=== PATIENT | female | born 1985 | race Two or more races ===

== ENCOUNTER 2024-11-21 23:17 | Emergency (ER) | payer MEDICAID, SELFPAY ==
[2024-11-21 23:18] VITALS: BMI 26.6
[2024-11-21 23:26] VITALS: BP 117/78; PULSE 78; RESP 20; TEMP 36.8; O2SAT 100
[2024-11-21 23:49] LABS: Collection Type, Urine Clean Catch
[2024-11-22 00:02] LABS: Amphetamine/Methamp Scrn,U Negative (Negative); Barbiturate Screen,Urine Negative (Negative); Benzodiazepines Screen,Urine Negative (Negative); Benzoylecgonine Screen, Ur Negative (Negative); Bilirubin,Urine Negative (Negative); Blood,Urine Negative (Negative); Clarity,Urine Clear (Clear/Hazy); Color,Urine Lt-Yellow (Lt Yel-Yel); Culture Indicated,Urine Not Indicated; Fentanyl Screen,Urine Negative (Negative); Glucose, Urine Negative (Negative); Ketones,Urine Trace (Negative); Leukocyte Esterase,Urine Positive (Negative); Nitrite,Urine Negative (Negative); Opiate Screen,Urine Negative (Negative); Protein,Urine Negative (Neg - Trace); RBC,Urine 1 /hpf (0-3); Specific Gravity,Urine 1.016 (1.001-1.035); Squamous Epithelial Cell,Urine 9 /hpf (0-5); THC Screen,Urine Negative (Negative); Urobilinogen,Urine Negative mg/dL (0.0-1.0); WBC,Urine 5 /hpf (0-5)
[2024-11-22 00:03] LABS: HCG Qualitative,Urine Negative
--- NOTE | 2024-11-22 00:05 | XR_ITS ---
Examination: Pelvic ultrasound, transabdominal, complete Technique: Transabdominal ultrasound of the pelvis performed using grayscale imaging Date and time of exam: November 22, 2024 0100 hours INDICATIONS: Pelvic pain beginning 2 days ago FINDINGS: Uterus 8.6 cm endometrial stripe 0.4 cm No uterine mass or intrauterine gestation Right ovary 2.7 cm arterial flow Left ovary 2.9 cm arterial flow 13 mm x 16 mm follicular cyst IMPRESSION: No uterine mass or intrauterine gestation
[2024-11-22 00:33] LABS: Basophils # (Auto) 0.1 Thou/mm3 (0.0-0.2); Basophils % (Auto) 1 % (0-2.5); Eosinophils # (Auto) 0.2 Thou/mm3 (0.0-0.5); Eosinophils % (Auto) 3 % (0-10); Hematocrit 34.7 % (36.0-46.0); Immature Granulocytes % (Auto) 0 % (0-0); Immature Granulocytes Auto 0.01 Thou/mm3 (0.00-0.00); Lymphocytes # (Auto) 3.2 Thou/mm3 (1.0-4.8); Lymphocytes % (Auto) 41 % (10-50); Mean Corpuscular HGB Conc 34.6 g/dl (31.0-37.0); Mean Corpuscular Hemoglobin 29.6 pg (25.0-35.0); Mean Corpuscular Volume 86 fL (80-100); Monocytes # (Auto) 0.5 Thou/mm3 (0.0-0.8); Monocytes % (Auto) 6 % (0-12); Neutrophils # (Auto) 3.9 Thou/mm3 (1.8-7.7); Neutrophils % (Auto) 50 % (37-80); Nucleated Red Blood Cell % 0 /100 WBC (0); Platelet Count 416 Thou/mm3 (140-440); RDW Standard Deviation 42.2 fL (36.4-46.3); Red Blood Count 4.06 Miln/mm3 (4.00-5.20); White Blood Count 7.9 Thou/mm3 (3.6-11.0)
--- NOTE | 2024-11-22 00:49 | PD.EDFMALE ---
ED Female Urogenital RME/HPI General Chief complaint: Back Pain/Injury Stated complaint: LOWER ABD,BACK PAIN Time Seen by Provider: 11/21/24 23:29 Arrival date/time: 11/21/24 23:17 39F with no significant PMH presents to ED with several days of pelvic pressure, and some bilateral back/flank pain. Patient denies diarrhea, vaginal bleeding, and dysuria. Limitations: no limitations Related Data Home Medications ?Medication ?Instructions ?Recorded ?Confirmed amoxicillin 250 mg chewable tablet 250 mg PO BID 06/26/18 06/26/18 Previous Rx's ?Medication ?Instructions ?Recorded baclofen 5 mg tablet 5 mg PO QHSPRN PRN muscle pain #10 06/26/18 tabs naproxen 500 mg tablet 500 mg PO BID PRN pain #30 tabs 06/26/18 Allergies Allergy/AdvReac Type Severity Reaction Status Date / Time No Known Allergies Allergy Unverified 06/26/18 06:57 Review of Systems Review of Systems Systems Reviewed: All systems reviewed, normal except as documented Constitutional Constitutional: Reports system reviewed and no additional complaints, except as documented, Denies fever(s) and Denies headache(s) ENT Ears, Nose, Mouth, and Throat: Denies disequilibrium and Denies headache(s) Cardiovascular Cardiovascular: Reports system reviewed and no additional complaints, except as documented, Denies chest pain and Denies dyspnea Respiratory Respiratory: Reports system reviewed and no additional complaints, except as documented, Denies cough and Denies dyspnea Gastrointestinal Gastrointestinal: Reports system reviewed and no additional complaints, except as documented, Denies abdominal pain, Denies nausea and Denies vomiting Genitourinary Genitourinary: Reports as per HPI, Reports flank pain and Reports pelvic pain Neurologic Neurologic: Reports system reviewed and no additional complaints, except as documented, Denies confusion, Denies disequilibrium and Denies headache(s) Psychiatric Psychiatric: Denies confusion Past Medical History Past Medical History CARDIAC: Negative Cardiac Disorders or Congestive Heart Failure RESPIRATORY: Negative Chronic Obstructive Pulmonary Disease (COPD) GASTROINTESTINAL: Negative Gastrointestinal Disorders GENITOURINARY: Negative Genitourinary Disorders or Renal Disease REPRODUCTIVE: Negative Pelvic Inflammatory Disease ENDOCRINE: Negative Endocrine Disorders, Diabetes Mellitus Type 1 or Diabetes Mellitus Type 2 HEMATOLOGIC: Negative Blood Disorders OTHER HISTORY: Positive Hospitalization (childbirth) Family History FAMILY HISTORY: Negative Family Cardiac Disorders Surgical History SURGICAL: Negative Section Social History SMOKING STATUS: Never smoker ED Exam General Limitations: Present no limitations General appearance: Present alert and in no apparent distress Head Head exam: Present atraumatic Eye Eye exam: Present normal appearance, PERRL and EOMI ENT ENT exam: Present normal exam, normal oropharynx and mucous membranes moist Neck Neck exam: Present normal inspection, full ROM and trachea midline Chest Chest inspection: Present normal inspection and symmetric chest wall rise Respiratory Respiratory exam: Present normal lung sounds bilaterally Cardiovascular Cardiovascular exam: Present regular rate, normal rhythm and normal heart sounds Abdominal Exam Abdominal exam: Present soft and normal bowel sounds Extremities Exam Extremities exam: Present normal inspection and full ROM Back Exam Back exam: Present normal inspection and full ROM Neurological Exam Neurological exam: Present alert, oriented X3 and CN II-XII intact Psychiatric Psychiatric exam: Present normal affect and normal mood Skin Skin exam: Present warm, dry, intact and normal color Course Quality Measures none Orders Category Date Time Status US pelvic complete Stat Exams 11/22/24 00:05 Taken CBC Stat Lab 11/22/24 00:20 Completed CMP [Comprehensive Metabolic Panel] Stat Lab 11/22/24 00:20 Completed Drug Screen,Urine Stat Lab 11/21/24 23:35 Completed HCG Qualitative,Urine Stat Lab 11/21/24 23:35 Completed Urinalysis, C/S if Indicated Stat Lab 11/21/24 23:35 Completed Vital Signs Vital signs: Vital Signs Temperature 98.2 F 11/21/24 23:26 Pulse Rate 78 11/21/24 23:26 Respiratory Rate 20 11/21/24 23:26 Blood Pressure 117/78 11/21/24 23:26 Pulse Oximetry (%) 100 11/21/24 23:26 Oxygen Delivery Method Room Air 11/21/24 23:26 O2 at 100% on RA and WNLs Urogenital - Female MDM Narrative MDM Narrative:: 39F with no significant PMH presents to ED with several days of pelvic pressure, and some bilateral back/flank pain. Patient denies diarrhea, vaginal bleeding, and dysuria. Physical exam reveals no ab/CVA tenderness. Patient is afebrile, calm, and alert. UA clean. HCG/tox neg. No leukocytosis or anemia. CMP unremarkable. US reveals L ovarian cyst. Patient data External records reviewed:: [facility] previous records Clinical information provided by:: patient Social determinants that could affect healthcare access:: none Patient has the following chronic illnesses:: none How is presenting disease/condition affected by chronic disease/condition?: no chronic disease Evaluation data The following diagnostics were reviewed and interpreted by me:: lab results and radiology exam(s) Lab and/or radiology exams considered but not ordered:: ordered Interpretation Summary: above Medications / Prescriptions Medications or Prescriptions considered but not ordered:: not ordered Medication administrations:: n/a Consultations Consultation(s) initiated? (list below): No Diagnosis Urogenital Female Differential Diagnosis: urinary tract infection, bacterial vaginosis, trichomoniasis, cervicitis, ovarian cyst, vaginitis, ruptured ovarian cyst, cyst of Bartholin's gland, cystitis and dysmenorrhea Most likely diagnosis given after review of the tests above:: ovarian cyst Admission Indicated Admission indicated?: not indicated Admission Request Was there a request for admission?: No Disposition Plan Disposition Plan: Discharge Discharge Attestation Discharge Attestation: The patient and all family members were given an opportunity to ask questions and understood the discharge instructions. Discharge instructions specifically effects, indications for sooner follow up or return to the emergency department, and the expected course of current diagnosis. Patient condition: Stable Discharge Plan Plan Patient Disposition: HOME (Self Care) Disposition Comment: Stable Prescriptions/Referrals Prescriptions/Med Rec: No Action amoxicillin 250 mg Tablet,Chewable 250 mg PO BID naproxen 500 mg tablet 500 mg PO BID PRN (Reason: pain) Qty: 30 0RF baclofen 5 mg tablet 5 mg PO QHSPRN PRN (Reason: muscle pain) Qty: 10 0RF Referrals: Joan Woodson PA-C [Primary Care Provider] - In 1 week Problem List Clinical Impression: Ovarian cyst Patient/Caregiver Discharge Instructions Education Materials: ED Ovarian Cyst Additional Instructions: Please follow-up with PCP/OBGYN within 24-48 hours and return immediately if symptoms worsen. Print Language: Trinidadian Stand Alone Forms: Patient Portal Info Letter SERINA/TAMMY Supervising Physician MARTINEZ Supervising Physician: Dr. Parker
[2024-11-22 00:55] LABS: Alanine Aminotransferase 14 U/L (10-49); Albumin, Serum 4.7 gm/dL (3.5-5.0); Albumin/Globulin Ratio 1.4 (1.2-2.2); Alkaline Phosphatase 51 U/L (46-116); Anion Gap 7 (7-16); Aspartate Amino Transferase 22 U/L (0-34); BUN/Creatinine Ratio 10 Ratio (12-20); Bilirubin,Total 0.5 mg/dL (0.3-1.2); Blood Urea Nitrogen 8 mg/dL (9-23); Calcium 9.9 mg/dL (8.3-10.6); Calcium (Corrected) 9.9 mg/dL (8.5-10.1); Carbon Dioxide 27.6 mMol/L (20.0-31.0); Chloride 105 mMol/L (98-107); Creatinine (Component) 0.8 mg/dL (0.6-1.3); Estimated Creatinine Clearance 94.2 mL/min (>60); Globulin 3.3 gm/dL (2.3-3.5); Glucose 98 mg/dL (74-106); Osmolality,Calculated 277 (275-295); Potassium 3.8 mMol/L (3.4-5.1); Sodium 140 mMol/L (136-145); eGFR > 60 See Note
--- NOTE | 2024-11-22 04:06 | PC.NURSE ---
WE HAD DOWN TIME FROM [id number].
[2024-11-22 04:08] VITALS: BP 124/69; PULSE 78; RESP 19; TEMP 36.7; O2SAT 99
== END 2024-11-22 04:10 | disposition home or self-care (01) ==
PROVIDERS: Physician Assistant; Emergency Provider Emergency Medicine; PCP Physician Assistant
DX: N83.202 Unspecified ovarian cyst, left side (principal)
CPT/HCPCS: 36415; 76856; 80053; 80307; 81001; 81025; 85025; 99284

== ENCOUNTER → 2025-05-28 | Outpatient (CLI) | payer MEDICAID, SELFPAY ==
--- NOTE | 2025-05-28 07:15 | XR_ITS ---
Examination: Retroperitoneal ultrasound, complete Technique: Multiple high resolution grayscale images of the retroperitoneum obtained, including kidneys and bladder. Exam date and time:May 28, 2025, 0718 hrs. Indications: Right flank pain beginning 2 months ago Findings: Right kidney 10.8 cm cortex 1.2 cm Mild right hydronephrosis Left kidney 8.1 cm cortex 1.0 cm No hydronephrosis No bladder mass or bladder calculi Bladder prevoid volume 376 cc Impression: Mild right hydronephrosis, consider CT stone study follow-up to exclude right ureteral calculus
== END | disposition home or self-care (01) ==
LOC: CDIM 07:07
PROVIDERS: PCP Physician Assistant; Referring Provider Physician Assistant; Visit Provider Physician Assistant
DX: N13.30 Unspecified hydronephrosis (principal)
CPT/HCPCS: 76770

== ENCOUNTER → 2025-06-19 | Outpatient (CLI) | payer MEDICAID, SELFPAY ==
--- NOTE | 2025-06-19 08:15 | XR_ITS ---
Examination: Screening digital mammography, bilateral Computer aided detection 3-D breast Tomosynthesis, bilateral Date and time of exam: June 19, 2025, 0724 hours Indication: Screening Technique: Nonmagnified MLO, CC views of the breasts to been obtained, reconstructed from 3-D Tomosynthesis images. R2 computer aided detection program utilized for evaluation of suspicious masses and/or abnormal calcifications. 3-D Tomosynthesis images obtained. Findings: The breasts are heterogeneously dense, which may obscure small masses 8 mm nodule indistinct margins 3 o'clock position left breast Impression: BI-RADS Category 0: Incomplete: Need additional imaging evaluation Recommend follow-up spot tomographic views of the 3:00 nodule left breast as well as bilateral breast sonography to complete the work-up
== END | disposition home or self-care (01) ==
LOC: CDIM 07:12
PROVIDERS: PCP Nurse Practitioner Primary Care; Referring Provider Nurse Practitioner Primary Care; Visit Provider Nurse Practitioner Primary Care
DX: Z12.31 Encounter for screening mammogram for malignant neoplasm of breast (principal); R92.8 Other abnormal and inconclusive findings on diagnostic imaging of breast; N63.25 Unspecified lump in the left breast, overlapping quadrants
CPT/HCPCS: 77063; 77067

== ENCOUNTER → 2025-07-05 | Outpatient (CLI) | payer MEDICAID, SELFPAY ==
[2025-07-04 15:42] LABS: HCG Qualitative,Urine Negative
--- NOTE | 2025-07-05 09:18 | XR_ITS ---
Examination: CT abdomen and pelvis without contrast. Coronal 3-D reconstructions. Sagittal 2-D reconstructions. Date and time of exam: July 05, 2025, 0938 hours INDICATIONS: Right flank pain beginning 3 months ago, renal sonogram May 28, 2025 mild right hydronephrosis CTDI: vol (mGy): 8.30 DLP: (mGycm): 477 Technique: Axial images of the abdomen have been obtained, 3 mm slice thickness Intravenous contrast material has not been administered. Low dose protocols were performed. One or more of the following dose reduction techniques were used; automated exposure control, adjustment of the mA and/or KV according to patient size, use of iterative reconstruction technique. Findings: No focal liver or splenic lesions No gallstones No pancreatic or adrenal mass No renal or ureteral calculi, minimal right hydronephrosis No ureteral calculi No bowel obstruction Normal appendix Urinary bladder intact No pelvic mass IMPRESSION: Minimal right hydronephrosis, consider urinary tract infection
== END | disposition home or self-care (01) ==
LOC: CCTX 09:05
PROVIDERS: PCP Physician Assistant; Referring Provider Physician Assistant; Visit Provider Physician Assistant
DX: N13.30 Unspecified hydronephrosis (principal); Z32.00 Encounter for pregnancy test, result unknown
CPT/HCPCS: 74176; 81025

== ENCOUNTER 2025-07-13 22:56 | Emergency (ER) | payer MEDICAID, SELFPAY ==
[2025-07-13 22:58] VITALS: BMI 25.9
--- NOTE | 2025-07-13 23:05 | XR_ITS ---
Examination: Breast ultrasound complete, bilateral Date and time of exam: July 13, 2025, 11:52 p.m. INDICATIONS: Left breast pain 1 month worse since yesterday Technique: Real-time grayscale ultrasonographic imaging bilateral breasts, including all 4 quadrants as well as nipple retroareolar and axillary regions. Findings: No cystic or solid mass involving either breast IMPRESSION: BI-RADS Category 1: Negative study
[2025-07-13 23:07] VITALS: BP 131/83; PULSE 68; RESP 19; TEMP 36.6; O2SAT 99
--- NOTE | 2025-07-13 23:49 | EDNOTE_ITS ---
ED Skin Abcess FB-RME/HPI General Chief complaint: Chest Pain Stated complaint: LEFT BREAST PAIN X1 MONTH Time Seen by Provider: 07/13/25 23:17 Arrival date/time: 07/13/25 22:56 40F with no signficant PMH presents to ED with 1 month of L breast pain and lump. Outpatient mammogram was done where something was found, but patient is unclear. Patient has another mammogram scheduled. Patient denies URI symptoms or SOB. Limitations: no limitations Related Data Home Medications ?Medication ?Instructions ?Recorded ?Confirmed amoxicillin 250 mg chewable tablet 250 mg PO BID 06/2606/26/18 Previous Rx's ?Medication ?Instructions ?Recorded baclofen 5 mg tablet 5 mg PO QHSPRN PRN muscle pa in #10 06/26/18 tabs naproxen 500 mg tablet 500 mg PO BID PRN pain #30 t abs 06/26/18 Allergies Allergy/AdvReac Type Severity Reaction Status Date / Time No Known Allergies Allergy Verified 07/13/25 22:57 Review of Systems Review of Systems Systems Reviewed: All systems reviewed, normal except as documented Integumentary/Breasts Skin/Breast: Reports as per HPI, Reports breast mass and Reports breast pain Past Medical History Past Medical History CARDIAC: Negative Cardiac Disorders or Congestive Heart Failure RESPIRATORY: Negative Chronic Obstructive Pulmonary Disease (COPD) GASTROINTESTINAL: Negative Gastrointestinal Disorders GENITOURINARY: Negative Genitourinary Disorders or Renal Disease REPRODUCTIVE: Negative Pelvic Inflammatory Disease ENDOCRINE: Negative Endocrine Disorders, Diabetes Mellitus Type 1 or Diabetes Mellitus Type 2 HEMATOLOGIC: Negative Blood Disorders OTHER HISTORY: Positive Hospitalization Family History FAMILY HISTORY: Negative Family Cardiac Disorders Surgical History SURGICAL: Negative Section Social History SMOKING STATUS: Never smoker ED Exam General Limitations: Present no limitations General appearance: Present alert and in no apparent distress Head Head exam: Present atraumatic Neck Neck exam: Present normal inspection, full ROM and trachea midline Chest Chest inspection: Present normal inspection and symmetric chest wall rise; Absent tenderness Neurological Exam Neurological exam: Present alert and oriented X3 Psychiatric Psychiatric exam: Present normal affect and normal mood Skin Skin exam: Present warm, dry, intact and normal color Course Quality Measures none Orders Category Date Time Status US breast BI complete Stat Exams 07/13/25 23:05 Completed Vital Signs Vital signs: Vital Signs Temperature 98 F 07/13/25 23:07 Pulse Rate 68 07/13/25 23:07 Respiratory Rate 19 07/13/25 23:07 Blood Pressure 131/83 H 07/13/25 23:07 Pulse Oximetry (%) 99 07/13/25 23:07 Oxygen Delivery Method Room Air 07/13/25 23:07 O2 at 99% on RA and WNLs Skin / Abscess / Foreign Body MDM Narrative MDM Narrative:: 40F with no signficant PMH presents to ED with 1 month of L breast pain and lump. Outpatient mammogram was done where something was found, but patient is unclear. Patient has another mammogram scheduled. Patient denies URI symptoms or SOB. Physical exam with lens grinder and polisher SOREN Ty reveals no obvious abnormality of L breast or focal tenderness/mass. Patient is afebrile, calm, and alert. US unremarkable. Rooming House Operator given. Patient data External records reviewed:: [facility] previous records Clinical information provided by:: patient Social determinants that could affect healthcare access:: none Patient has the following chronic illnesses:: none How is presenting disease/condition affected by chronic disease/condition?: no chronic disease Evaluation data The following diagnostics were reviewed and interpreted by me:: radiology exam(s) Lab and/or radiology exams considered but not ordered:: ordered Interpretation Summary: above Medications / Prescriptions Medications or Prescriptions considered but not ordered:: not ordered Medication administrations:: n/a Consultations Consultation(s) initiated? (list below): No Diagnosis Skin/Abscess Differential Diagnosis: abscess of skin or subcutaneous tissue, viral exanthem, dermatophytosis, urticaria, herpes zoster, allergic reaction to drug, cellulitis, eczema, insect bites, impetigo, contact dermatitis and other (mastitis, breast pain/mass) Most likely diagnosis given after review of the tests above:: breast pain Admission Indicated Admission indicated?: not indicated Admission Request Was there a request for admission?: No Disposition Plan Disposition Plan: Discharge Discharge Attestation Discharge Attestation: The patient and all family members were given an opportunity to ask questions and understood the discharge instructions. Discharge instructions specifically effects, indications for sooner follow up or return to the emergency department, and the expected course of current diagnosis. Patient condition: Stable Discharge Plan Plan Patient Disposition: HOME (Self Care) Discharge Disposition comment: Stable Prescriptions/Referrals Prescriptions/Med Rec: No Action amoxicillin 250 mg Tablet,Chewable 250 mg PO BID naproxen 500 mg tablet 500 mg PO BID PRN (Reason: pain) Qty: 30 0RF baclofen 5 mg tablet 5 mg PO QHSPRN PRN (Reason: muscle pain) Qty: 10 0RF Referrals: Joan Woodson PA-C [Primary Care Provider] - In 1 week Problem List Clinical Impression: Breast pain Patient/Caregiver Discharge Instructions Education Materials: Breast Anatomy Additional Instructions: Please follow-up with PCP/OBYGN within 24-48 hours and return immediately if symptoms worsen. Print Language: Barbadian Stand Alone Forms: Patient Portal Info Letter SERINA/TAMMY Supervising Physician SERINA/TAMMY Supervising Physician: Dr. Arnold
== END 2025-07-14 00:29 | disposition home or self-care (01) ==
PROVIDERS: Emergency Provider Emergency Medicine; PCP Physician Assistant
DX: N64.4 Mastodynia (principal)
CPT/HCPCS: 76641; 99282

== ENCOUNTER → 2025-07-17 | Outpatient (CLI) | payer MEDICAID, SELFPAY ==
--- NOTE | 2025-07-17 08:45 | XR_ITS ---
Examination: Diagnostic digital mammography, unilateral, left Computer aided detection 3-D breast Tomosynthesis, unilateral Date and time of exam: July 17, 2025, 0843 hours INDICATIONS: Mammogram May 30 five 8 mm nodule indistinct margins 3 o'clock position left breast Technique: Nonmagnified MLO, CC views of the left breast have been obtained, reconstructed from 3-D Tomosynthesis images. R2 computer aided detection program utilized for evaluation of suspicious masses and/or abnormal calcifications. 3-D Tomosynthesis images obtained. Findings: The breast is heterogeneously dense, which may obscure small masses No suspicious masses noted on the spot compression views Impression: BI-RADS category 2: Benign findings Return to yearly follow-up mammography
== END | disposition home or self-care (01) ==
LOC: CDIM 08:33
PROVIDERS: PCP Physician Assistant; Referring Provider Physician Assistant; Visit Provider Physician Assistant
DX: R92.322 Mammographic fibroglandular density, left breast (principal)
CPT/HCPCS: 77061; 77065; G0279